=== PATIENT | female | born 1945 | race Caucasian/White ===

== ENCOUNTER → 2017-01-24 | Outpatient (CLI) | payer BC ==
[~2017-01-24] MED LIST: ALBU8.5H INH; AZIT250T6 PO; BENZ-16 PO; CLOB50SO2 TOP; CYCL5TAB PO; DICL100G5 TOP; ESTR42.53 VAGINALLY; FLUC100T8 PO; LACT1CAP73 PO; LEVO150T9 PO; MULT1TAB69 PO; NAPR220C11 PO; NITR50CA PO; OMEP20TA11 PO; PENT100C8 PO; PHYT100T PO; [UNRECOGNIZED DRUG - CODE] PO
== END ==
LOC: WC.BC 12:34
DX: Z12.31 Encounter for screening mammogram for malignant neoplasm of breast (principal); N64.59 Other signs and symptoms in breast
CPT/HCPCS: 77063; G0202